=== PATIENT | female | born 1945 | race Hispanic/Latino ===

== ENCOUNTER 2017-04-03 06:23 | Day surgery (SDC) | payer OTHER ==
[~2017-04-03] VITALS: Ht 147.3 cm; Wt 68.4 kg
[~2017-04-03 06:23] MED LIST: ENAL20TA PO; GLIP5TAB11 PO; MAGN250T10 PO; MEMA5TAB15 PO; METF500T6 PO; SIMV10TA6 PO
[2017-04-03] MEDS ORDERED: SODIUM CHLORIDE 0.9% 1000ML 1,000 ML IV ONE (06:47)
[2017-04-03 07:31] VITALS: BP 125/60
[2017-04-03 08:23] VITALS: BP 94/42
== END 2017-04-03 09:00 ==
LOC: ENDO 06:23 → DAH 06:23 → ENDO 09:00
PROVIDERS: ATTEND Internal Medicine Gastroenterology
DX: K55.21 Angiodysplasia of colon with hemorrhage (principal); Z53.9 Procedure and treatment not carried out, unspecified reason; Z86.010 Personal history of colon polyps; Z68.41 Body mass index [BMI] 40.0-44.9, adult; K21.9 Gastro-esophageal reflux disease without esophagitis; K57.30 Diverticulosis of large intestine without perforation or abscess without bleeding; I10 Essential (primary) hypertension; E78.5 Hyperlipidemia, unspecified; Z86.73 Personal history of transient ischemic attack (TIA), and cerebral infarction without residual deficits; G47.33 Obstructive sleep apnea (adult) (pediatric); Z82.49 Family history of ischemic heart disease and other diseases of the circulatory system; Z83.3 Family history of diabetes mellitus
CPT/HCPCS: 82948 ×2; 93005; A4606; J7030

== ENCOUNTER → 2019-08-11 | Outpatient (CLI) | payer OTHER | END | disposition home or self-care (01) | LOC: SHCH 08:39 | PROVIDERS: ATTEND Internal Medicine Cardiovascular Disease | DX: I34.0 Nonrheumatic mitral (valve) insufficiency (principal) ==